=== PATIENT | male | born 1945 | race Caucasian/White ===

== ENCOUNTER → 2016-12-03 | Outpatient (CLI) | payer MEDICARE, MEDICAID ==
[~2016-12-03] VITALS: Ht 172.7 cm; Wt 98.8 kg
[~2016-12-03] MED LIST: AMLO-511 PO; ASPI81 PO; CHL25 PO; CYAN250010 PO; DOCU-119 PO; LORA10TA7 PO; LORA1TAB3 PO; OMEP20 PO; OXYC500S PO; PILOCARPINE OS; POTA10TA17 PO
[2016-12-03 10:27] VITALS: BP 106/68
== END | disposition home or self-care (01) ==
LOC: SRCNTR 10:19
PROVIDERS: ATTEND Internal Medicine Cardiovascular Disease
DX: I10 Essential (primary) hypertension (principal); M19.90 Unspecified osteoarthritis, unspecified site; K22.0 Achalasia of cardia; Z95.2 Presence of prosthetic heart valve
CPT/HCPCS: 93005; G0463

== ENCOUNTER → 2017-01-31 | Outpatient (CLI) | payer MEDICARE, MEDICAID ==
[~2017-01-31] VITALS: Ht 172.7 cm; Wt 93.0 kg
[~2017-01-31] MED LIST changes: -CHL25 PO
[2017-01-31 14:47] VITALS: BP 93/52
== END | disposition home or self-care (01) ==
LOC: SRCNTR 14:19
PROVIDERS: ATTEND Internal Medicine Cardiovascular Disease
DX: I10 Essential (primary) hypertension (principal); K21.9 Gastro-esophageal reflux disease without esophagitis; M19.90 Unspecified osteoarthritis, unspecified site; Z96.652 Presence of left artificial knee joint; Z95.2 Presence of prosthetic heart valve
CPT/HCPCS: G0463

== ENCOUNTER → 2017-05-21 | Outpatient (CLI) | payer MEDICARE, MEDICAID ==
[~2017-05-21] VITALS: Ht 175.3 cm; Wt 85.0 kg
[2017-05-21 14:29] VITALS: BP 101/64
== END | disposition home or self-care (01) ==
LOC: SRCNTR 14:19
PROVIDERS: ATTEND Internal Medicine Cardiovascular Disease
DX: I10 Essential (primary) hypertension (principal); K21.9 Gastro-esophageal reflux disease without esophagitis; F41.9 Anxiety disorder, unspecified; M19.90 Unspecified osteoarthritis, unspecified site; Z95.2 Presence of prosthetic heart valve; Z96.652 Presence of left artificial knee joint; Z79.82 Long term (current) use of aspirin
CPT/HCPCS: G0463

== ENCOUNTER → 2017-08-21 | Outpatient (CLI) | payer MEDICARE, MEDICAID | END | disposition home or self-care (01) | LOC: RADPV 14:41 | PROVIDERS: ATTEND Podiatrist Foot & Ankle Surgery | DX: M85.871 Other specified disorders of bone density and structure, right ankle and foot (principal); M85.872 Other specified disorders of bone density and structure, left ankle and foot; M20.11 Hallux valgus (acquired), right foot; M20.12 Hallux valgus (acquired), left foot; I70.203 Unspecified atherosclerosis of native arteries of extremities, bilateral legs ==